=== PATIENT | male | born 1980 | race Caucasian/White ===

== ENCOUNTER 2016-07-05 14:51 | Outpatient (CLI) | payer MEDICAID ==
[2016-07-05] MEDS ORDERED: GADOBUTROL 15 MMOL/15 ML VIAL IVP ONE (16:07)
== END 2016-07-05 14:52 | disposition home or self-care (01) ==
DX: R56.9 Unspecified convulsions (principal); R90.89 Other abnormal findings on diagnostic imaging of central nervous system
CPT/HCPCS: 70553; A9585

== ENCOUNTER 2018-01-29 13:44 | Emergency (ER) | payer MEDICAID, OTHER ==
--- NOTE | 2018-01-29 16:41 | ED Physician Documentation ---
PD HPI HEADACHE - Stated complaint Stated Complaint: MIGRAINE - Chief complaint Chief Complaint: Neuro - History obtained from History obtained from: Patient - History of Present Illness Timing - onset: How many weeks ago (q) Timing - onset during: Light activity Timing - details: Gradual onset, Still present, Waxing and waning Worst headache ever?: No: Worst headache ever? Location: Front Quality: Throbbing, Aching. No: Thunderclap Improved by: Dark room, Quiet Worsened by: Light, Noise Contributing factors: No: Anticoagulated, Possible carbon monoxide, Hypertension Similar symptoms before: Other (has had migraines often and usually responds to Tryptan med. His headache improved with these but then back in couple of hours.) Recently seen: Not recently seen Review of Systems Constitutional: denies: Fever, Chills Eyes: reports: Photophobia. denies: Loss of vision, Decreased vision Ears: denies: Loss of hearing, Ear pain Nose: denies: Rhinorrhea / runny nose, Reviewed and negative Throat: denies: Oral lesions / sores, Sore throat GI: reports: Nausea, Vomiting. denies: Diarrhea Neurologic: reports: Headache. denies: Difficulty speaking, Confused, Altered mental status, Head injury, LOC PD PAST MEDICAL HISTORY - Past Medical History Cardiovascular: None Respiratory: None Endocrine/Autoimmune: None GI: None : None HEENT: None Psych: None Musculoskeletal: Other Derm: None - Past Surgical History Past Surgical History: Yes Neuro: Craniotomy, Other - Present Medications Home Medications: Ambulatory Orders Medication Instructions Recorded Confirmed Dexamethasone [Decadron] 4 mg PO DAILY #5 tablet 01/29/18 Gabapentin [Neurontin] 1 tab PO DAILY 01/29/18 01/29/18 Naproxen [Naprosyn] 500 mg PO BID PRN #20 tablet 01/29/18 Ondansetron HCl [Zofran] 4 mg PO Q6H PRN #20 tablet 01/29/18 lamoTRIgine [LaMICtal] 2 tab PO DAILY 01/29/18 01/29/18 - Allergies Allergies/Adverse Reactions: Allergies Allergy/AdvReac Type Severity Reaction Status Date / Time No Known Drug Allergies Allergy Verified 01/29/18 14:01 - Social History Does the pt smoke?: No Smoking Status: Never smoker Does the pt drink ETOH?: Yes Does the pt have substance abuse?: No - Immunizations Immunizations are current?: Yes PD ED PE NORMAL - Vitals Vital signs reviewed: Yes - General General: Alert and oriented X 3, No acute distress, Well developed/nourished, Other (light sensitive and wearing sunglasses. ) - HEENT HEENT: PERRL, EOMI (light sensitive), Other (fundi grossly normal. ) - Neck Neck: Supple, no meningeal sign, No adenopathy - Cardiac Cardiac: RRR, No murmur - Respiratory Respiratory: Clear bilaterally - Abdomen Abdomen: Normal bowel sounds, Soft, Non tender, Non distended - Male Male : Deferred - Rectal Rectal: Deferred - Back Back: No CVA TTP, No spinal TTP - Extremities Extremities: No tenderness to palpate, Normal ROM s pain - Neuro Neuro: Alert and oriented X 3, No motor deficit, No sensory deficit, Normal speech Results - Vitals Vitals: Vital Signs - 24 hr 01/29/18 01/29/18 13:55 18:38 Temperature 36.9 C Heart Rate 75 80 Respiratory 18 16 Rate Blood Pressure 131/90 H 149/78 H O2 Saturation 96 Oxygen O2 Source Room air PD MEDICAL DECISION MAKING - ED course Complexity details: re-evaluated patient (feeling much/mostly improved with IV meds in ED. ), considered differential, d/w patient - Sepsis Event Vital Signs: Vital Signs - 24 hr 01/29/18 01/29/18 13:55 18:38 Temperature 36.9 C Heart Rate 75 80 Respiratory 18 16 Rate Blood Pressure 131/90 H 149/78 H O2 Saturation 96 Oxygen O2 Source Room air Departure - Departure Disposition: 01 Home, Self Care Clinical Impression: Status migrainosus without intractable migraine Qualifiers: Migraine type: without aura Qualified Code(s): G43.001 - Migraine without aura , not intractable, with status migrainosus Condition: Stable Record reviewed to determine appropriate education?: Yes Instructions: ED Headache Migraine Prescriptions: Dexamethasone [Decadron] 4 mg PO DAILY #5 tablet Naproxen [Naprosyn] 500 mg PO BID PRN #20 tablet PRN Reason: Pain Ondansetron HCl [Zofran] 4 mg PO Q6H PRN #20 tablet PRN Reason: Nausea / Vomiting Comments: Drink lots of fluids at home. Continue the Decadron daily for several more days to try to reduce the recurrence of the migraine. Continue your triptan medications as needed for recurrent headaches. Combine it with ondansetron if needed for nausea and naproxen anti-inflammatory. Follow-up with your primary care if more consistent headaches develop for potential prophylactic medications. Otherwise continue your other usual medicines at this time. I wrote a note for tomorrow off if needed if you are not feeling quite back to normal. Forms: Activity restrictions Discharge Date/Time: 01/29/18 18:40
[2018-01-29] MEDS ORDERED: KETOROLAC 60 MG/2 ML VIAL IVP STA (16:52)
[2018-01-29] MEDS ORDERED: METOCLOPRAMIDE 10 MG/2 ML VIAL IVP STA (16:52)
[2018-01-29] MEDS ORDERED: diphenhydrAMINE INJ 50 MG/ML VIAL IVP STA (16:52)
[2018-01-29] MEDS ORDERED: SODIUM CHLORIDE 0.9% 1,000 ML IV ONE ×2 (16:52→16:54)
[2018-01-29] MEDS ORDERED: DEXAMETHASONE 10 MG/ML VIAL IVP STA (16:53)
[2018-01-29 18:38] VITALS: BP 149/78
== END 2018-01-29 18:40 | disposition home or self-care (01) ==
LOC: ED 13:44
DX: G43.001 Migraine without aura, not intractable, with status migrainosus (principal)
CPT/HCPCS: 96361; 96374; 96375; 99283; 99284; J1200; J2765

== ENCOUNTER 2018-01-31 16:22 | Emergency (ER) | payer OTHER ==
[2018-01-31 18:29] VITALS: BP 158/90
--- NOTE | 2018-01-31 18:59 | ED Physician Documentation ---
History of Present Illness - Stated complaint Stated Complaint: FIT FOR DUTY - Chief complaint Chief Complaint: General - History obtained from History obtained from: Patient - History of Present Illness Timing: Today - Additonal information Additional information: 37-year-old male with history of intermittent migraines had a migraine and required treatment in the emergency department. He was released from work for 2 days and he is coming now with forms to fill out for return to work. He states that he is not having issues at this time he did get 6-1/2 hours of sleep today he feels he will build to return to work to full duty tomorrow. Review of Systems Constitutional: denies: Fever, Chills Eyes: denies: Decreased vision Ears: denies: Ear pain, Foreign body Nose: denies: Rhinorrhea / runny nose, Congestion Throat: denies: Sore throat Cardiac: denies: Chest pain / pressure Respiratory: denies: Dyspnea, Cough GI: denies: Nausea, Vomiting, Diarrhea : denies: Dysuria Skin: denies: Rash Musculoskeletal: denies: Neck pain, Back pain Neurologic: reports: Headache. denies: Generalized weakness, Focal weakness, Numbness, Head injury, LOC PD PAST MEDICAL HISTORY - Past Medical History Past Medical History: Yes Cardiovascular: None Respiratory: None Neuro: Migraines, Seizure disorder, Other Endocrine/Autoimmune: None GI: None : None HEENT: None Psych: None Musculoskeletal: Other Derm: None - Past Surgical History Past Surgical History: Yes Neuro: Craniotomy, Other - Present Medications Home Medications: Ambulatory Orders Medication Instructions Recorded Confirmed Dexamethasone [Decadron] 4 mg PO DAILY #5 tablet 01/29/18 Gabapentin [Neurontin] 1 tab PO DAILY 01/29/18 01/29/18 Naproxen [Naprosyn] 500 mg PO BID PRN #20 tablet 01/29/18 Ondansetron HCl [Zofran] 4 mg PO Q6H PRN #20 tablet 01/29/18 lamoTRIgine [LaMICtal] 2 tab PO DAILY 01/29/18 01/29/18 - Allergies Allergies/Adverse Reactions: Allergies Allergy/AdvReac Type Severity Reaction Status Date / Time No Known Drug Allergies Allergy Verified 01/31/18 16:39 - Social History Does the pt smoke?: No Smoking Status: Never smoker Does the pt drink ETOH?: Yes Does the pt have substance abuse?: No - Immunizations Immunizations are current?: Yes - POLST Patient has POLST: No PD ED PE NORMAL - Vitals Vital signs reviewed: Yes (hypertensive ) - General General: Alert and oriented X 3, No acute distress, Well developed/nourished - HEENT HEENT: Atraumatic, PERRL, EOMI - Respiratory Respiratory: No respiratory distress - Derm Derm: Normal color, Warm and dry, No rash - Extremities Extremities: No deformity, No edema - Neuro Neuro: Alert and oriented X 3, construction analyst 2-12 intact, No motor deficit, No sensory deficit, Normal speech Eye Opening: Spontaneous Motor: Obeys Commands Verbal: Oriented GCS Score: 15 - Psych Psych: Normal mood, Normal affect Results - Vitals Vitals: Vital Signs - 24 hr 01/31/18 01/31/18 16:38 18:28 Temperature 36.8 C 36.7 C Heart Rate 74 84 Respiratory 16 16 Rate Blood Pressure 138/96 H 158/90 H O2 Saturation 99 95 Oxygen O2 Source Room air PD MEDICAL DECISION MAKING - ED course Complexity details: considered differential, d/w patient ED course: 37-year-old male who has had a migraine is ready to return to work. - Sepsis Event Vital Signs: Vital Signs - 24 hr 01/31/18 01/31/18 16:38 18:28 Temperature 36.8 C 36.7 C Heart Rate 74 84 Respiratory 16 16 Rate Blood Pressure 138/96 H 158/90 H O2 Saturation 99 95 Oxygen O2 Source Room air Departure - Departure Disposition: 01 Home, Self Care Clinical Impression: Well adult exam Condition: Stable Instructions: ED Headache Migraine Follow-Up: Jun Hairston DO [Primary Care Provider] -
== END 2018-01-31 19:02 | disposition home or self-care (01) ==
LOC: ED 16:22
DX: Z00.8 Encounter for other general examination (principal); Z86.69 Personal history of other diseases of the nervous system and sense organs
CPT/HCPCS: 99282; 99283

== ENCOUNTER 2018-02-20 21:21 | Emergency (ER) | payer OTHER ==
[2018-02-20 21:36] VITALS: BP 131/85
--- NOTE | 2018-02-20 21:50 | ED Physician Documentation ---
History of Present Illness - Stated complaint Stated Complaint: [place] - Chief complaint Chief Complaint: General - History obtained from History obtained from: Patient - History of Present Illness Timing: Other (He works at a desk job, he has been absent from his work for the last 9 days because of a migraine. That is not atypical for him. He has had frequent migraines and a brain tumor removal. He really has not had much of a headache now but would like to try something if it comes back. But his main concern is that he needs a return to work note.) Review of Systems Constitutional: denies: Fever, Chills Respiratory: denies: Dyspnea, Cough GI: denies: Abdominal Pain, Nausea, Vomiting PD PAST MEDICAL HISTORY - Past Medical History Past Medical History: Yes Cardiovascular: None Respiratory: None Neuro: Migraines, Seizure disorder, Other Endocrine/Autoimmune: None GI: None : None HEENT: None Psych: None Musculoskeletal: Other Derm: None - Past Surgical History Past Surgical History: Yes Neuro: Craniotomy, Other - Present Medications Home Medications: Ambulatory Orders Medication Instructions Recorded Confirmed Dexamethasone [Decadron] 4 mg PO DAILY #5 tablet 01/29/18 Gabapentin [Neurontin] 1 tab PO DAILY 01/29/18 01/29/18 Naproxen [Naprosyn] 500 mg PO BID PRN #20 tablet 01/29/18 Ondansetron HCl [Zofran] 4 mg PO Q6H PRN #20 tablet 01/29/18 lamoTRIgine [LaMICtal] 2 tab PO DAILY 01/29/18 01/29/18 Ondansetron Odt [Zofran] 4 mg TL Q6H PRN #10 tablet 02/20/18 SUMAtriptan [Imitrex] 25 mg PO BID PRN #10 tablet 02/20/18 - Allergies Allergies/Adverse Reactions: Allergies Allergy/AdvReac Type Severity Reaction Status Date / Time No Known Drug Allergies Allergy Verified 02/20/18 21:39 - Social History Does the pt smoke?: No Smoking Status: Never smoker Does the pt drink ETOH?: Yes Does the pt have substance abuse?: No - Immunizations Immunizations are current?: Yes - POLST Patient has POLST: No PD ED PE NORMAL - Vitals Vital signs reviewed: Yes - General General: Alert and oriented X 3, No acute distress - HEENT HEENT: PERRL, EOMI - Neck Neck: Supple, no meningeal sign, No bony TTP - Neuro Neuro: Alert and oriented X 3, gear finisher 2-12 intact Eye Opening: Spontaneous Motor: Obeys Commands Verbal: Oriented GCS Score: 15 - Psych Psych: Normal mood, Normal affect Results - Vitals Vitals: Vital Signs - 24 hr 02/20/18 21:25 Temperature 36.9 C Heart Rate 78 Respiratory 16 Rate Blood Pressure 131/85 H O2 Saturation 96 Oxygen O2 Source Room air PD MEDICAL DECISION MAKING - Sepsis Event Vital Signs: Vital Signs - 24 hr 02/20/18 21:25 Temperature 36.9 C Heart Rate 78 Respiratory 16 Rate Blood Pressure 131/85 H O2 Saturation 96 Oxygen O2 Source Room air Departure - Departure Disposition: 01 Home, Self Care Clinical Impression: Status migrainosus without intractable migraine Qualifiers: Migraine type: without aura Qualified Code(s): G43.001 - Migraine without aura, not intractable, with status migrainosus Condition: Good Record reviewed to determine appropriate education?: Yes Instructions: ED Headache Migraine Prescriptions: Ondansetron Odt [Zofran] 4 mg TL Q6H PRN #10 tablet PRN Reason: Nausea / Vomiting SUMAtriptan [Imitrex] 25 mg PO BID PRN #10 tablet PRN Reason: Headache
== END 2018-02-20 21:53 | disposition home or self-care (01) ==
LOC: ED 21:21
DX: G43.909 Migraine, unspecified, not intractable, without status migrainosus (principal)
CPT/HCPCS: 99283

== ENCOUNTER 2018-03-24 12:50 | Emergency (ER) | payer MEDICAID, OTHER ==
[2018-03-24] MEDS ORDERED: SODIUM CHLORIDE 0.9% 1,000 ML IV ONE ×2 (13:46→14:18)
--- NOTE | 2018-03-24 14:05 | ED Physician Documentation ---
PD HPI HEADACHE - Stated complaint Stated Complaint: MIGRAINE/VOMITING - Chief complaint Chief Complaint: Abd Pain - History obtained from History obtained from: Patient - History of Present Illness Timing - onset: Yesterday Timing - onset during: Rest Timing - duration: Days (2) Timing - details: Gradual onset, Still present, Constant Worst headache ever?: No: Worst headache ever? Location: Front, Right Quality: Throbbing, Aching Associated symptoms: Nausea, Vomiting, Weakness (generalized). No: Fever, Stiff neck, Numbness Improved by: Dark room. No: Meds (vomited meds he has at home) Worsened by: Light, Noise Contributing factors: No: Hypertension, Recent illness, Trauma Similar symptoms before: Diagnosis (migraines intermittently) Recently seen: Emergency Dept (few visits this year for similar migraines) Review of Systems Constitutional: denies: Fever, Chills, Myalgias Nose: denies: Rhinorrhea / runny nose, Congestion, Sinus pressure / pain Throat: denies: Sore throat Respiratory: denies: Cough GI: reports: Nausea, Vomiting. denies: Abdominal Pain, Diarrhea : denies: Dysuria, Frequency Skin: denies: Rash Neurologic: reports: Generalized weakness. denies: Focal weakness, Numbness, Altered mental status PD PAST MEDICAL HISTORY - Past Medical History Cardiovascular: None Respiratory: None Neuro: Migraines, Seizure disorder, Other Endocrine/Autoimmune: None GI: None : None HEENT: None Psych: None Musculoskeletal: Other Derm: None - Past Surgical History Past Surgical History: Yes Neuro: Craniotomy, Other - Present Medications Home Medications: Ambulatory Orders Medication Instructions Recorded Confirmed Gabapentin [Neurontin] 1 tab PO DAILY 01/29/18 01/29/18 Ondansetron HCl [Zofran] 4 mg PO Q6H PRN #20 tablet 01/29/18 Ondansetron Odt [Zofran] 4 mg TL Q6H PRN #10 tablet 02/20/18 SUMAtriptan [Imitrex] 25 mg PO BID PRN #10 tablet 02/20/18 FLUoxetine [PROzac] 10 mg PO DAILY 03/24/18 03/24/18 Ondansetron Odt [Zofran] 4 mg TL Q6H PRN #15 tablet 03/24/18 - Allergies Allergies/Adverse Reactions: Allergies Allergy/AdvReac Type Severity Reaction Status Date / Time No Known Drug Allergies Allergy Verified 02/20/18 21:39 - Social History Does the pt smoke?: No Smoking Status: Never smoker Does the pt drink ETOH?: Yes Does the pt have substance abuse?: No - Immunizations Immunizations are current?: Yes - POLST Patient has POLST: No PD ED PE NORMAL - Vitals Vital signs reviewed: Yes - General General: Alert and oriented X 3, Well developed/nourished - HEENT HEENT: Ears normal, Pharynx benign. No: Moist mucous membranes - Neck Neck: Supple, no meningeal sign, No adenopathy - Cardiac Cardiac: RRR (tachycardia), No murmur - Respiratory Respiratory: Clear bilaterally - Abdomen Abdomen: Normal bowel sounds, Soft, Non tender, Non distended, No organomegaly - Back Back: No CVA TTP - Derm Derm: Normal color, Warm and dry - Extremities Extremities: No deformity, No tenderness to palpate, Normal ROM s pain - Neuro Neuro: Alert and oriented X 3, die sinker apprentice 2-12 intact, No motor deficit, No sensory deficit, Normal speech Eye Opening: Spontaneous Motor: Obeys Commands Verbal: Oriented GCS Score: 15 - Psych Psych: Normal mood Results - Vitals Vitals: Vital Signs - 24 hr 03/24/18 12:55 Temperature 36 C L Heart Rate 108 H Respiratory 18 Rate Blood Pressure 143/83 H O2 Saturation 96 Oxygen O2 Source Room air PD MEDICAL DECISION MAKING - ED course Complexity details: reviewed old records, reviewed results, re-evaluated patient (much improved with meds tailored for migraine. ), considered differential, d/w patient Departure - Departure Disposition: Home, Self Care Clinical Impression: Migraine headache Qualifiers: Migraine type: without aura Status migrainosus presence: with status migrainosus Intractability: not intractable Qualified Code(s): G43.001 - Migraine without aura, not intractable, with status migrainosus Condition: Stable Record reviewed to determine appropriate education?: Yes Instructions: ED Headache Migraine Prescriptions: Ondansetron Odt [Zofran] 4 mg TL Q6H PRN #15 tablet PRN Reason: Nausea / Vomiting Comments: Continue usual medications at home. Add ondansetron if needed for nausea and vomiting. Discharge Date/Time: 03/24/18 15:50
[2018-03-24] MEDS ORDERED: METOCLOPRAMIDE 10 MG/2 ML VIAL IVP STA (14:18)
[2018-03-24] MEDS ORDERED: diphenhydrAMINE INJ 50 MG/ML VIAL IVP STA (14:18)
[2018-03-24] MEDS ORDERED: DEXAMETHASONE 10 MG/ML VIAL IVP STA (14:18)
[2018-03-24] MEDS ORDERED: KETOROLAC 60 MG/2 ML VIAL IVP STA (14:18)
[2018-03-24 15:27] VITALS: BP 128/79
== END 2018-03-24 15:50 | disposition home or self-care (01) ==
LOC: ED 12:50
DX: G43.001 Migraine without aura, not intractable, with status migrainosus (principal)
CPT/HCPCS: 96361; 96374; 96375; 99283; J1200; J2765

== ENCOUNTER 2018-04-29 06:05 | Outpatient (CLI) | payer MEDICAID | END 2018-04-29 06:06 | disposition critical access hospital (66) | LOC: EMS 06:05 | PROVIDERS: ATTEND Surgery | DX: R11.2 Nausea with vomiting, unspecified (principal); M54.5 Low back pain; R51 Headache | CPT/HCPCS: A0425; A0427; A0999 ==

== ENCOUNTER 2018-04-29 06:25 | Emergency (ER) | payer MEDICAID ==
[2018-04-29] MEDS: SODIUM CHLORIDE 0.9% 1,000 ML IV STA (06:39)
[2018-04-29 06:56] LABS: BASOPHILS # (AUTO) 0.1 10^3/uL (0.0-0.1); BASOPHILS % (AUTO) 0.9 %; EOSINOPHILS # (AUTO) 0.1 10^3/uL (0.0-0.7); EOSINOPHILS % (AUTO) 1.1 %; HGB - HEMOGLOBIN 14.6 g/dL (14.0-18.0); LYMPHOCYTES # (AUTO) 2.2 10^3/uL (1.5-3.5); LYMPHOCYTES % (AUTO) 25.7 %; MEAN CORPUSCULAR HEMOGLOBIN 30.4 pg (27.0-31.0); MEAN CORPUSCULAR HGB CONC 34.9 g/dL (32.0-36.0); MEAN CORPUSCULAR VOLUME 87.2 fL (80.0-94.0); MEAN PLATELET VOLUME 7.9 fL (7.4-11.4); MONOCYTES # (AUTO) 0.9 10^3/uL (0.0-1.0); MONOCYTES % (AUTO) 10.8 %; NEUTROPHILS # (AUTO) 5.3 10^3/uL (1.5-6.6); NEUTROPHILS % (AUTO) 61.5 %; PLT - PLATELET COUNT 281 10^3/uL (130-450); WHITE BLOOD COUNT 8.6 x10^3/uL (4.8-10.8)
[2018-04-29 06:59] LABS: BILIRUBIN,URINE NEGATIVE (NEGATIVE); GLUCOSE, URINE (UA) NEGATIVE (NEGATIVE); KETONES,URINE (UA) NEGATIVE (NEGATIVE); LEUKOCYTE ESTERASE, URINE NEGATIVE (NEGATIVE); NITRITE,URINE NEGATIVE (NEGATIVE); OCCULT BLOOD,URINE SMALL (NEGATIVE); PROTEIN,URINE NEGATIVE (NEGATIVE); UROBILINOGEN,URINE 0.2 (NORMAL) E.U./dL (NORMAL)
[2018-04-29 07:03] LABS: CLARITY,URINE CLEAR (CLEAR)
--- NOTE | 2018-04-29 07:05 | ED Physician Documentation ---
PD HPI ABD PAIN - Stated complaint Stated Complaint: N/V - Chief complaint Chief Complaint: Abd Pain - History obtained from History obtained from: Patient - History of Present Illness Timing - onset: How many days ago (6) Timing - duration: Days (6) Timing - details: Abrupt onset (Initially with nausea vomiting and diarrhea. That diarrhea decreased in a day or 2 he has had just persistence nausea with vomiting on oral intake. He is feeling weak and dehydrated. He was having a headache with some light sensitivity today and does have a history of migraines so feels he has some element of migraine triggered as well.) Quality: Aching Location: Epigastric Radiation: No: Lower back, Left flank, Right flank, Upper back Improved by: No: Eating, Vomiting Worsened by: Eating Associated symptoms: Nausea, Vomiting, Diarrhea (the first 2 days of illness, then little stools the past few days). No: Fever, Hematemesis, Constipation, Near syncope / syncope Similar symptoms before: Has not had sx before Recently seen: Not recently seen Review of Systems Constitutional: denies: Fever, Chills, Myalgias Nose: denies: Rhinorrhea / runny nose, Congestion Throat: denies: Sore throat Respiratory: denies: Cough GI: reports: Abdominal Pain (intermittent, not continual), Nausea, Vomiting, Diarrhea. denies: Abdominal Swelling : denies: Dysuria, Frequency Neurologic: reports: Generalized weakness, Headache (today). denies: Focal weakness, Near syncope, Confused, Altered mental status, Head injury Endocrine: reports: Weight loss (this week). denies: Polydypsia, Polyuria Immunocompromised: denies: Immunocompromised PD PAST MEDICAL HISTORY - Past Medical History Past Medical History: Yes Cardiovascular: None Respiratory: None Neuro: Migraines, Seizure disorder, Other Endocrine/Autoimmune: None GI: None : None HEENT: None Psych: None Musculoskeletal: Other Derm: None Other Past Medical History: brain tumor - Past Surgical History Past Surgical History: Yes Neuro: Craniotomy, Other - Present Medications Home Medications: Ambulatory Orders Medication Instructions Recorded Confirmed Gabapentin [Neurontin] 1 tab PO DAILY 01/29/18 01/29/18 Ondansetron HCl [Zofran] 4 mg PO Q6H PRN #20 tablet 01/29/18 Ondansetron Odt [Zofran] 4 mg TL Q6H PRN #10 tablet 02/20/18 SUMAtriptan [Imitrex] 25 mg PO BID PRN #10 tablet 02/20/18 FLUoxetine [PROzac] 10 mg PO DAILY 03/24/18 03/24/18 Ondansetron Odt [Zofran] 4 mg TL Q6H PRN #15 tablet 03/24/18 Famotidine 20 mg PO DAILY #30 tablet 04/29/18 Ondansetron Odt [Zofran] 4 mg TL Q6H PRN #10 tablet 04/29/18 Promethazine [Phenergan] 25 mg PO Q6H PRN #10 tab 04/29/18 - Allergies Allergies/Adverse Reactions: Allergies Allergy/AdvReac Type Severity Reaction Status Date / Time No Known Drug Allergies Allergy Verified 02/20/18 21:39 - Social History Does the pt smoke?: No Smoking Status: Never smoker Does the pt drink ETOH?: No Does the pt have substance abuse?: No - Immunizations Immunizations are current?: Yes - POLST Patient has POLST: No PD ED PE NORMAL - Vitals Vital signs reviewed: Yes - General General: Alert and oriented X 3, No acute distress, Well developed/nourished - HEENT HEENT: Ears normal, Pharynx benign. No: Moist mucous membranes - Neck Neck: Supple, no meningeal sign, No adenopathy - Cardiac Cardiac: RRR, No murmur - Respiratory Respiratory: Clear bilaterally - Abdomen Abdomen: Normal bowel sounds, Soft, Non tender, Non distended, No organomegaly - Male Male : Deferred - Rectal Rectal: Deferred - Back Back: No CVA TTP - Derm Derm: Warm and dry. No: Normal color (pale) - Extremities Extremities: No edema, No calf tenderness / cord - Neuro Neuro: Alert and oriented X 3, No motor deficit, Normal speech Eye Opening: Spontaneous Motor: Obeys Commands Verbal: Oriented GCS Score: 15 - Psych Psych: Normal mood, Normal affect Results - Vitals Vitals: Vital Signs - 24 hr 04/29/18 04/29/18 06:25 08:06 Temperature 37.4 C 36.8 C Heart Rate 94 67 Respiratory 17 14 Rate Blood Pressure 150/105 H 139/88 H O2 Saturation 97 99 Oxygen O2 Source Room air - Labs Labs: Laboratory Tests 11/04/29/18 04/29/18 06:49 06:49 06:49 WBC 8.6 RBC 4.80 Hgb 14.6 Hct 41.9 L MCV 87.2 MCH 30.4 MCHC 34.9 RDW 13.0 Plt Count 281 MPV 7.9 Neut # (Auto) 5.3 Lymph # (Auto) 2.2 [place] # (Auto) 0.9 Eos # (Auto) 0.1 Baso # (Auto) 0.1 Absolute Nucleated RBC 0.01 Nucleated RBC % 0.1 Sodium 139 Potassium 3.7 Chloride 102 Carbon Dioxide 24 Anion Gap 13.0 BUN 36 H Creatinine 3.3 H Estimated GFR (MDRD) 21 L Glucose 107 H Calcium 9.3 Total Bilirubin 1.2 H AST 115 H ALT 263 H Alkaline Phosphatase 69 Total Protein 8.7 H Albumin 4.5 Globulin 4.2 Albumin/Globulin Ratio 1.1 Lipase 32 Urine Color YELLOW Urine Clarity CLEAR Urine pH 6.0 Ur Specific Ranger 1.010 Urine Protein NEGATIVE Urine Glucose (UA) NEGATIVE Urine Ketones NEGATIVE Urine Occult Blood SMALL H Urine Nitrite NEGATIVE Urine Bilirubin NEGATIVE Urine Urobilinogen 0.2 (NORMAL) Ur Leukocyte Esterase NEGATIVE Urine RBC 0-5 Urine WBC 0-3 Ur Squamous Epith Cells NONE SEEN Urine Bacteria Rare Ur Microscopic Review INDICATED Urine Culture Comments NOT INDICATED 04/29/18 10:05 WBC RBC Hgb Hct MCV MCH MCHC RDW Plt Count MPV Neut # (Auto) Lymph # (Auto) [place] # (Auto) Eos # (Auto) Baso # (Auto) Absolute Nucleated RBC Nucleated RBC % Sodium 137 Potassium 4.3 Chloride 105 Carbon Dioxide 24 Anion Gap 8.0 BUN 32 H Creatinine 3.1 H Estimated GFR (MDRD) 23 L Glucose 90 Calcium 8.2 L Total Bilirubin AST ALT Alkaline Phosphatase Total Protein Albumin Globulin Albumin/Globulin Ratio Lipase Urine Color Urine Clarity Urine pH Ur Specific Ranger Urine Protein Urine Glucose (UA) Urine Ketones Urine Occult Blood Urine Nitrite Urine Bilirubin Urine Urobilinogen Ur Leukocyte Esterase Urine RBC Urine WBC Ur Squamous Epith Cells Urine Bacteria Ur Microscopic Review Urine Culture Comments PD MEDICAL DECISION MAKING - ED course Complexity details: reviewed results, re-evaluated patient (Feeling much better and taking oral fluids adequately. His headache is improved and his nausea is lessened. I consulted the hospitalist and based on just the elevated creatinine but clinically doing better, he would not meet criteria for observation. He is to maintain hydration at home and will give him antiemetics. He should follow- up with the clinic (he states he has not been there for many years) or return to the ER in couple of days for repeat blood test. He should return sooner if worsening.), considered differential (Likely a viral gastroenteritis and then subsequently likely triggered some gastritis which is perpetuated the nausea and vomiting. He has some headache today with light sensitivity and a history of migraines so may be having an element of migraine 2. He does not look meningitic.), d/w patient Departure - Departure Disposition: 01 Home, Self Care Clinical Impression: Elevated serum creatinine, Dehydration, Nausea vomiting and diarrhea Gastritis Qualifiers: Gastritis type: unspecified gastritis Chronicity: acute Gastritis bleeding: without bleeding Qualified Code(s): K29.00 - Acute gastritis without bleeding Condition: Stable Record reviewed to determine appropriate education?: Yes Instructions: ED Dehydration, ED Gastritis Follow-Up: [facility] [Provider Group] Prescriptions: Famotidine 20 mg PO DAILY #30 tablet Ondansetron Odt [Zofran] 4 mg TL Q6H PRN #10 tablet PRN Reason: Nausea / Vomiting Promethazine [Phenergan] 25 mg PO Q6H PRN #10 tab PRN Reason: Nausea / Vomiting Comments: Small frequent fluids and bland food. Likelihood had a viral stomach flu with vomiting and diarrhea and then probably developed some irritation of the stomach called gastritis which perpetuated the vomiting. He did appear significantly dehydrated. Your creatinine level is elevated which correlates with that. Use ondansetron or promethazine as needed for nausea. Famotidine acid suction plate roller hand daily for the next few weeks. Rest for a couple of days. Recheck either with your primary care clinic or back here in the ER in 2-3 days for repeat blood test to ensure your kidney function is improving with better hydration. Forms: Activity restrictions Discharge Date/Time: 04/29/18 12:33
[2018-04-29 07:07] LABS: ALBUMIN 4.5 g/dL (3.2-5.5); ALBUMIN/GLOBULIN RATIO 1.1 (1.0-2.2); BILIRUBIN,TOTAL 1.2 mg/dL (0.2-1.0); CALCIUM 9.3 mg/dL (8.5-10.3); CREATININE 3.3 mg/dL (0.6-1.2); TOTAL PROTEIN 8.7 g/dL (6.7-8.2)
[2018-04-29 07:20] LABS: BACTERIA,URINE Rare /HPF (None Seen); RBC,URINE 0-5 /HPF (0-5); SQUAMOUS EPITHELIAL CELL,UR NONE SEEN (<= Few)
[2018-04-29] MEDS: SODIUM CHLORIDE 0.9% 1,000 ML IV ONE ×2 (07:33→08:48)
[2018-04-29] MEDS ORDERED: IOPAMIDOL-300 100 ML VIAL ONE (07:33)
[2018-04-29] MEDS: KETOROLAC 15 MG/ML VIAL IVP STA (07:37)
[2018-04-29] MEDS: METOCLOPRAMIDE 10 MG/2 ML VIAL IVP STA (07:38)
[2018-04-29] MEDS: FAMOTIDINE 20 MG/2 ML VIAL IVP STA (07:40)
[2018-04-29 08:07] VITALS: BP 139/88
--- NOTE | 2018-04-29 08:19 | CT Report ---
Reason: vomiting and back pain for 6 days Procedure Date: 04/29/2018 Accession Number: [id number] / [id number] Procedure: CT - Abdomen/Pelvis W/O CPT Code: FULL RESULT: EXAM: CT ABDOMEN AND PELVIS EXAM DATE: 04/29/2018 07:59 AM. CLINICAL HISTORY: Vomiting and back pain for 6 days. COMPARISONS: None. TECHNIQUE: Routine helical CT imaging was performed through the abdomen and pelvis. IV contrast: . Enteric contrast: No. Reconstructions: Coronal and sagittal. In accordance with CT protocol optimization, one or more of the following dose reduction techniques were utilized for this exam: automated exposure control, adjustment of mA and/or KV based on patient size, or use of iterative reconstructive technique. FINDINGS: Lung Bases: Unremarkable. Liver: Normal. No masses. Gallbladder/Bile Ducts: Unremarkable. Spleen: Normal. Pancreas: Normal. Adrenal Glands: Normal. Kidneys: Normal. No masses or hydronephrosis. Peritoneal Cavity/Bowel: Diverticulosis without inflammatory changes. Small fat-containing umbilical hernia No free fluid, free air or adenopathy. No masses or acute inflammatory process. The appendix is well visualized and normal. Pelvic Organs: Normal. The bladder and visualized pelvic organs are within normal limits. Vasculature: No aneurysms or other significant abnormality. Bones: No significant abnormality. Other: None. IMPRESSION: 1. Diverticulosis without inflammatory changes. 2. Normal appendix. 3. No obvious etiology for vomiting, back pain RADIA
[2018-04-29 10:28] LABS: CALCIUM 8.2 mg/dL (8.5-10.3); CREATININE 3.1 mg/dL (0.6-1.2)
== END 2018-04-29 12:33 | disposition home or self-care (01) ==
LOC: EDUNIT# → ED 06:25
DX: R74.8 Abnormal levels of other serum enzymes (principal); R11.2 Nausea with vomiting, unspecified; R19.7 Diarrhea, unspecified; K29.00 Acute gastritis without bleeding
CPT/HCPCS: 36415; 74176; 80048; 80053; 81001; 81003; 83690; 85025; 87086; 96361; 96374; 96375; 99283; 99284

== ENCOUNTER 2019-09-26 07:05 | Outpatient (CLI) | payer MEDICAID, OTHER ==
--- NOTE | 2019-09-26 09:28 | XRAY Report ---
Reason: KNEE JOINT PAIN, LEFT Procedure Date: 09/26/2019 Accession Number: [id number] / [id number] Procedure: XR - Knee 3 View LT CPT Code: Final Report FULL RESULT: EXAM: LEFT KNEE RADIOGRAPHY EXAM DATE: 09/26/2019 07:49 AM. CLINICAL HISTORY: Left knee pain. COMPARISON: None. TECHNIQUE: 3 views. FINDINGS: Bones: Normal. No fractures or bone lesions. Joints: Small joint effusion is suspected. No significant degenerative changes are seen. Soft Tissues: Normal. No soft tissue swelling. IMPRESSION: No acute osseous abnormality identified. Small joint effusion suspected. RADIA
== END 2019-09-26 07:06 | disposition home or self-care (01) ==
LOC: DI 07:05
PROVIDERS: ATTEND Family Medicine
DX: M25.562 Pain in left knee (principal)

== ENCOUNTER 2020-05-17 14:25 | Outpatient (CLI) | payer MEDICAID ==
[2020-05-17 19:08] LABS: ALBUMIN 4.3 g/dL (3.2-5.5); ALBUMIN/GLOBULIN RATIO 1.3 (1.0-2.2); BILIRUBIN,TOTAL 1.3 mg/dL (0.2-1.0); CALCIUM 9.1 mg/dL (8.5-10.3); CREATININE 0.9 mg/dL (0.6-1.2); TOTAL PROTEIN 7.6 g/dL (6.7-8.2)
[2020-05-17 19:10] LABS: FERRITIN 606.7 ng/mL (23.9-336.2)
[2020-05-17 20:58] LABS: HEMOGLOBIN A1c% 5.4 % (4.27-6.07)
[2020-05-18 12:23] LABS: HEPATITIS B SURFACE ANTIGEN NON-REACTIVE (NON-REACTIVE); HEPATITIS C ANTIBODY NON-REACTIVE (NON-REACTIVE)
== END 2020-05-17 14:26 | disposition home or self-care (01) ==
LOC: LAB.N 14:25
PROVIDERS: ATTEND Family Medicine
DX: R94.5 Abnormal results of liver function studies (principal); E66.01 Morbid (severe) obesity due to excess calories
CPT/HCPCS: 36415; 80053; 81599; 82104; 82390; 82728; 82977; 83036; 83540; 84443; 84466; 86038; 86317; 86704; 86709; 86803; 87340

== ENCOUNTER 2020-06-01 08:19 | Outpatient (CLI) | payer MEDICAID ==
--- NOTE | 2020-06-01 13:34 | Ultrasound Report ---
PROCEDURE: Abdomen Complete INDICATIONS: ABN LIVER FUNCTION TESTS TECHNIQUE: Real-time scanning was performed of the abdominal and retroperitoneal organs, with image documentatio n. COMPARISON: None. FINDINGS: Liver: The liver demonstrates diffusely increased echotexture without focal abnormalities which is c onsistent with chronic hepatocellular disease/hepatic steatosis. Gallbladder: Gallbladder slightly contracted but otherwise unremarkable. No gallstones, sludge, peric holecystic fluid, or abnormal sonographic Reilly's. Biliary ducts: Intrahepatic bile ducts are non-dilated. Extrahepatic bile duct caliber measures 5 m m. Normal is 6-7 mm or less in diameter, or 10 mm or less post-cholecystectomy. Pancreas: Visualized portions of the pancreas are sonographically normal. Spleen: Spleen is normal in size and homogeneous in echotexture. Kidneys: Kidneys are normal in size and echotexture. Right kidney measures 11.5 cm long; left kidne y measures 12.5 cm long. No hydronephrosis or nephrolithiasis. No solid masses. Aorta: Visualized portions of the abdominal aorta is normal in caliber at less than 3 cm. Iliacs: Proximal common iliac arteries are normal in caliber at less than 2.5 cm. IVC: Intrahepatic inferior vena cava is patent. Miscellaneous: No free abdominal fluid. IMPRESSION: 1. Hepatic steatosis. 2. Mildly contracted gallbladder. Otherwise, no evidence for cholelithiasis or acute cholecystitis. N o biliary ductal dilatation. Reviewed by: Gerardo Singletary MD on 06/01/2020 1:33 PM PST Approved by: Gerardo Singletary MD on 06/01/2020 1:33 PM PST Station ID: [id number]
[2020-06-01 18:40] LABS: ALBUMIN 4.2 g/dL (3.2-5.5); ALBUMIN/GLOBULIN RATIO 1.4 (1.0-2.2); BILIRUBIN,TOTAL 1.1 mg/dL (0.2-1.0); CALCIUM 8.9 mg/dL (8.5-10.3); CREATININE 0.9 mg/dL (0.6-1.2); TOTAL PROTEIN 7.1 g/dL (6.7-8.2)
== END 2020-06-01 08:20 | disposition home or self-care (01) ==
LOC: DI 08:19
PROVIDERS: ATTEND Family Medicine
DX: R94.5 Abnormal results of liver function studies (principal); K76.0 Fatty (change of) liver, not elsewhere classified
CPT/HCPCS: 36415; 80053; 81599; 82784; 83516

== ENCOUNTER 2020-07-27 08:00 | Outpatient (CLI) | payer MEDICAID ==
[2020-07-28 12:35] LABS: ALBUMIN 4.3 g/dL (3.2-5.5); ALBUMIN/GLOBULIN RATIO 1.3 (1.0-2.2); BILIRUBIN,TOTAL 0.6 mg/dL (0.2-1.0); CALCIUM 9.2 mg/dL (8.5-10.3); TOTAL PROTEIN 7.5 g/dL (6.7-8.2)
== END 2020-07-27 23:59 | disposition home or self-care (01) ==
LOC: LAB.WCP 08:00
PROVIDERS: ATTEND Family Medicine
DX: K76.0 Fatty (change of) liver, not elsewhere classified (principal)
CPT/HCPCS: 36415; 80053

== ENCOUNTER 2023-02-25 19:47 | Outpatient (CLI) | payer SELFPAY | END 2023-02-25 19:48 | disposition EMS.NT | LOC: EMS 19:47 | DX: Z03.89 Encounter for observation for other suspected diseases and conditions ruled out (principal) ==